=== PATIENT | male | born 1955 | race African-American/Black ===

== ENCOUNTER 2016-07-10 06:35 | Day surgery (SDC) | payer OTHER ==
[~2016-07-10] VITALS: Ht 175.3 cm; Wt 96.2 kg
[2016-07-10] MEDS ORDERED: NS 1000P @30 MLS/HR (KVO) IV SCH (07:00)
[2016-07-10 07:15] VITALS: BP 128/86; PULSE 57; RESP 18; TEMP 98.2; O2SAT 99
[2016-07-10] MEDS ORDERED: NITR0.4S SL (07:15)
[2016-07-10] MEDS ORDERED: LUPR7.5I2 IM (07:15)
[2016-07-10] MEDS ORDERED: CENTTAB PO (07:15)
[2016-07-10] MEDS ORDERED: ASPI1TAB69 PO (07:15)
[2016-07-10] MEDS ORDERED: MIDAZOLAM HCL 2 MG/2 ML VIAL ONE (08:09)
[2016-07-10] MEDS ORDERED: IOHEXOL 350 MG/ML 100 ML BTL (for Cath Lab) OTHER ONE (08:30)
[2016-07-10] MEDS ORDERED: METOCLOPRAMIDE HCL 10 MG/2 ML VIAL IV PRN (08:45)
[2016-07-10] MEDS ORDERED: BACITRACIN OINT 0.9 GM PKT TOP ONE (08:45)
[2016-07-10] MEDS ORDERED: ATROPINE SULFATE 1 MG/ML VIAL IV PRN (08:45)
[2016-07-10] MEDS ORDERED: SODIUM CHLORIDE 0.9% FLUSH 5 ML FLUSH IVF PRN (08:45)
[2016-07-10] MEDS ORDERED: ONDANSETRON HCL 4 MG/2 ML VIAL IV PRN (08:45)
[2016-07-10] MEDS ORDERED: LIDOCAINE HCL 1% 50 ML VIAL INFIL PRN (08:45)
[2016-07-10] MEDS ORDERED: SODIUM CHLOR 0.9% 250 ML INJ 250 ML IV PRN (08:45)
[2016-07-10] MEDS ORDERED: LORazepam 2 MG/ML VIAL IV PRN (08:45)
[2016-07-10] MEDS ORDERED: MISC INFORMATION XX ONE (08:45)
[2016-07-10] MEDS ORDERED: SODIUM CHLORIDE 0.9% FLUSH 5 ML FLUSH IVF SCH (09:00)
--- NOTE | 2016-08-08 13:24 | MA ---
cc: CHERY ESTEBAN MD Corrected Copy: 08/09/16 DATE: 08/08/2016 PROCEDURE PERFORMED Cardiac catheterization PROCEDURE IN DETAIL The patient was prepped and draped usual fashion. A 6-sheath was inserted percutaneously into the right femoral artery. Coronary angiography was done with Nubia preformed catheters. RESULTS The left main coronary was normal. Left anterior descending artery was essentially normal throughout its course. Left circumflex artery was normal throughout its course. The right coronary was anatomically dominant and normal throughout its course. CONCLUSION Normal coronary arteries. MD CEFERINO Swanson/bal /1:13 PM /8:42 AM
== END 2016-07-10 10:53 | disposition home or self-care (01) ==
LOC: HDOC 06:35 → HDIC 06:39 → HDOC 10:53
PROVIDERS: ATTEND Internal Medicine Cardiovascular Disease
DX: R07.9 Chest pain, unspecified (principal); E78.5 Hyperlipidemia, unspecified; C61 Malignant neoplasm of prostate; Z79.82 Long term (current) use of aspirin
CPT/HCPCS: 93458; C1760; C1769; C1893; G0269; J2250; Q9967